=== PATIENT | male | born 2000 | race Caucasian/White ===

== ENCOUNTER 2020-07-14 13:00 | Emergency (ER) | payer OTHER, SELFPAY ==
[2020-07-14 14:35] VITALS: BP 156/110; PULSE 88; RESP 20; TEMP 36.9; O2SAT 97; BMI 35.3
--- NOTE | 2020-07-14 14:38 | HMH.EDUTC ---
[facility] Dis[place] Clinical Impression: URI (upper respiratory infection) Qualifiers: URI type: unspecified URI Qualified Code(s): J06.9 - Acute upper respiratory infection, unspecified Disposition: Home, Self-Care Condition on Discharge: Good Instructions: Sore Throat, DI for Sinusitis, Sinusitis (Alternative Therapy) Additional Instructions: ? Avoid fruit juices, as these do not replace minerals and can actually increase diarrhea. ? Children and adults can use sports drinks to replenish electrolytes. Younger children and infants should use products formulated for children, like oral rehydration solutions. ? Eat food in small amounts and let your stomach recover. ? Get lots of rest. You may feel tired or weak. ? No greasy or fried foods for the next 24-48 hours BRAT diet Bananas Rice Apples and Magnolia ? Make sure to drink plenty of liquids ? Return if needed ? Straight to ER if any life threatening symptoms ? Follow up with family doctor in the next 48-72 hours if no improvement or any worsening of symptoms *Monitor Temp, Over the counter Motrin or Tylenol as directed/as needed Tylenol every 4 hours and Motrin every 6 hours (as long as your family doctor has told you that you can take it) for fever or pain. and straight to ER if unable to lower temp less than 101.0 after medication given *Warm salt water gargles may help to soothe the throat *Throat Lozenges *Warm fluids like tea with honey may help to soothe the throat *Sleep elevated *Humidifier/Vaporizer *Flonase 2 sprays in each nostril daily but be aware that it may take 2-3 days before you notice improvement Your throat swab was sent for culture. Those results are typically sent to your primary care. Be sure to follow up in 2-3 days with your family doctor/primary care physician if no improvement so they can review those result and treat if necessary. If you don?t have a primary care doctor, I recommend you get one but in the mean time, you will have to return to a walk in clinic Follow up IMMEDIATELY for new or worsening symptoms or no Noticeable improvement over the next 48-72 hours. 911 for difficulty breathing or swallowing You were tested for today for COVID19 your test result should be back in the next 24-48 hours, you may call to the [facility] to see if your test results are back in the next 48 hours [phone] [facility] hours are 9am-9pm You was given a handout with instructions for Self Quarantine and Self isolation for while you wait on test results and what to do if they are positive If you are positive the Health Dept will be contacting you also Prescriptions: Fluticasone Propionate [Flonase 50mcg nasal spray 16gm] 1 spr NS DAILY #1 bottle Prescription Printed methylPREDNISolone [Medrol 4mg tab] 4 mg PO DIRECTED #21 tab Prescription Printed Azithromycin [Z-Cayetano 250mg Tab] 250 mg PO DIRECTED #6 tab Prescription Printed Referrals: Mario Alberto Khan MD [Primary Care Provider] - Forms: Work/School Release Time of Disposition: 14:45 Medical Decision Making - Matias Inquiry Pt receiving controlled substance: No Matias was queried for this patient: No Vital Signs: 07/14/20 14:35 Temperature 98.4 F Temperature Source Oral Pulse Rate [Left Brachial] 88 Respiratory Rate 20 Blood Pressure [Left Arm] 156/110 H Blood Pressure Mean [Left Arm] 125 Blood Pressure Source [Left Arm] Automatic Cuff Blood Pressure Position [Left Arm] Sitting 02 Sat by Pulse Oximetry 97 Oxygen Delivery Method Room Air - Lab Data Lab results reviewed: Yes: I reviewed the patient's lab results. Orders (Tests/Meds): ORDERS Category Date Time Status Covid-19 Nasal PCR ([facility]) Routine Lab 07/14/20 14:16 Ordered [facility] HPI - General Stated complaint: cough, sore throat, fever Time Seen by Provider: 07/14/20 14:38 Mode of Arrival: Ambulatory Source of Information: Patient Limitations: No Limitations Description of Symptoms (Recalled from Triage Doc. by RN): NITO
[2020-07-14 14:54] VITALS: BP 156/110; PULSE 88; RESP 20; TEMP 36.9; O2SAT 97
[2020-07-14 20:03] LABS: UTC Strep Screen (Rapid) Negative (Negative)
[2020-07-14 20:04] LABS: UTC Influenza A Antigen Negative (Negative); UTC Influenza B Antigen Negative (Negative)
== END 2020-07-14 15:00 | disposition home or self-care (01) ==
PROVIDERS: Emergency Provider Nurse Practitioner; PCP Internal Medicine Adolescent Medicine
DX: Z20.822 Contact with and (suspected) exposure to COVID-19 (principal); J06.9 Acute upper respiratory infection, unspecified
CPT/HCPCS: 87804; 87880; 99202; G0463; U0003

== ENCOUNTER 2022-02-07 23:46 | Emergency (ER) | payer OTHER, SELFPAY ==
--- NOTE | 2022-02-07 23:45 | ECG_ITS ---
APPROVED REPORT Exam: Resting ECG HR:72 bpm ECG Measurements Heart Rate 72 AXES NH 132 P 45 QRSd 111 QRS 36 QT 352 T 24 QTc 376 Conclusion SINUS RHYTHM WITH SINUS ARRHYTHMIA MODERATE INTRAVENTRICULAR CONDUCTION DELAY [110+ ms QRS DURATION] BORDERLINE ECG UNCONFIRMED REPORT Electronically signed by : Mario Alberto Khan MD 02/11/2022 21:01:03
[2022-02-07 23:51] VITALS: BP 148/86; PULSE 78; RESP 18; TEMP 36.8; O2SAT 98; BMI 35.3
--- NOTE | 2022-02-08 00:12 | XR_ITS ---
PROCEDURE INFORMATION: Exam: XR Chest Exam date and time: 02/08/2022 12:30 AM Age: 21 years old Clinical indication: Chest wall pain; Additional info: Chest pain TECHNIQUE: Imaging protocol: Radiologic exam of the chest. Views: 1 view. COMPARISON: No relevant prior studies available. FINDINGS: Lungs: Unremarkable. No consolidation. Pleural spaces: Unremarkable. No pleural effusion. No pneumothorax. Heart/Mediastinum: Unremarkable. No cardiomegaly. Bones/joints: Unremarkable. IMPRESSION: No acute findings.
--- NOTE | 2022-02-08 00:13 | HMH.EDCP ---
ED Disposition Clinical Impression: Chest pain Qualifiers: Chest pain type: unspecified Qualified Code(s): R07.9 - Chest pain, unspecified Disposition: Home, Self-Care Condition on Discharge: Good Referrals: Mario Alberto Khan MD [Primary Care Provider] - - Critical Care Critical Care Time: No Attestation: On 02/07/22, the high probability of a clinically significant, sudden or life threatening deterioration of the following system(s) required my full and direct attention, intervention and personal management. The time I documented below is in addition to time spent performing reported procedures but includes the following listed in this critical care notation. Medical Decision Making - Medical Records Medical records reviewed: Yes: I reviewed the patient's medical records. - Matias Inquiry Pt receiving controlled substance: No Vital Signs: 02/07/22 23:51 02/08/22 00:30 02/08/22 00:31 Temperature 98.2 F Temperature Source Oral Pulse Rate 82 Pulse Rate [Left Apical] 78 Respiratory Rate 18 Blood Pressure 152/85 H 152/85 H Blood Pressure [Right Arm] 148/86 H Blood Pressure Mean 104 Blood Pressure Mean [Right Arm] 106 Blood Pressure Source [Right Arm] Automatic Cuff Blood Pressure Position [Right Arm] Sitting 02 Sat by Pulse Oximetry 98 98 Oxygen Delivery Method Room Air - Lab Data Lab Results 02/08/22 00:08: WBC 7.0, RBC 5.05, Hgb 15.5, Hct 47.2, MCV 93.5, MCH 30.6, MCHC 32.8, RDW 13.6, Plt Count 279, MPV 8.0, Neut % (Auto) 56.5, Lymph % (Auto) 33.2, [place]quois % (Auto) 6.6, Eos % (Auto) 2.3, Baso % (Auto) 1.4, Neut # (Auto) 4.0, Lymph # (Auto) 2.3, [place]roquois # (Auto) 0.5, Eos # (Auto) 0.2, Baso # (Auto) 0.1 02/08/22 00:08: Sodium 139, Potassium 4.0, Chloride 105, Carbon Dioxide 28, Anion Gap 10.0, BUN 11, Creatinine 0.90, Estimated Creat Clear 229, Estimated GFR 107, Est GFR ( Amer) 129, Glucose 96, Calcium 9.6, Total Bilirubin 1.5 H, AST 38, ALT 77, Alkaline Phosphatase 86, Troponin I < 0.01, Total Protein 7.4, Albumin 4.6, Globulin 2.8, Albumin/Globulin Ratio 1.6, Lipase 81 02/08/22 02:45: Troponin I < 0.01 Result diagrams: 02/08/22 00:08 02/08/22 00:08 Orders (Tests/Meds): ED MEDICATIONS Discontinued Medications Generic Name Dose Route Start Last Admin Trade Name Maggie PRN Reason Stop Dose Admin Belladonna Alkaloids 60 ml 02/08/22 00:12 02/08/22 00:18 Gi Cocktail 60ml Udc PO 02/08/22 00:13 60 ml ONCE ONE Administration Iopamidol 75 ml 02/08/22 01:51 02/08/22 01:54 Iopamidol-370 (76%);100ml Bottle IV 02/08/22 01:52 75 ml ONCE ONE Administration Sodium Chloride 50 ml 02/08/22 01:51 Sodium Chloride 0.9% 50ml Bag IV 02/08/22 01:52 ONCE ONE Sodium Chloride 10 ml 02/08/22 01:54 02/08/22 01:54 Sodium Chloride 0.9% 10ml Syr (Rad Only) IV 02/08/22 01:55 10 ml ONCE ONE Administration ORDERS Category Date Time Status Troponin I Q3H Lab 02/08/22 06:15 Ordered Medical Decision Narrative: In review this is a 21-year-old male who presents with chest pain. Hemodynamically stable and nontoxic-appearing. Initial EKG shows normal sinus rhythm without acute ST abnormalities. No arrhythmias. His symptoms are most likely consistent with reflux but will evaluate for any underlying cardiac changes. His laboratory studies were largely unremarkable outside of a bilirubin of 1.5. With this with this chest pain could potentially be gallbladder pathology so we will get a CT scan to evaluate for any abnormalities. This just showed evidence of mesenteric adenitis. His troponins were flat with no changes. Talked him about symptomatic care for possible reflux and he voiced understanding. At this point stable for discharge. Return precautions given. Chest Pain HPI - General Chief Complaint: Chest Pain Stated Complaint: CP Time Seen by Provider: 02/08/22 00:15 Mode of Arrival: Ambulatory Limitations: No Limitations Description of
[2022-02-08 00:19] LABS: Basophils # 0.1 K/mm3 (0-0.2); Basophils % 1.4 % (0.1-2.0); Eosinophils # 0.2 K/mm3 (0.0-0.4); Eosinophils % 2.3 % (0.1-12.0); Hematocrit 47.2 % (42.0-52.0); Hemoglobin 15.5 g/dL (14.1-18.0); Lymphocytes # 2.3 K/mm3 (0.7-4.5); Lymphocytes % 33.2 % (10-50); Mean Corpuscular HGB Conc 32.8 g/dL (31.8-35.4); Mean Corpuscular Hemoglobin 30.6 pg (27.0-31.2); Mean Corpuscular Volume 93.5 fl (80-94); Monocytes # 0.5 K/mm3 (0.1-1.0); Monocytes % 6.6 % (1.7-9.3); Neutrophils % 56.5 % (37.0-80.0); Platelet Count 279 K/mm3 (142-424); Red Blood Count 5.05 M/mm3 (4.60-6.20); Red Cell Distribution Width 13.6 % (11.5-17.5)
[2022-02-08 00:26] LABS: Alanine Aminotransferase 77 U/L (12-78); Albumin Level 4.6 g/dl (3.5-5.0); Albumin/Globulin Ratio 1.6 (1.1-1.8); Alkaline Phosphatase 86 U/L (38-126); Aspartate Amino Transferase 38 U/L (17-59); Bilirubin,Total 1.5 mg/dl (0.2-1.3); Blood Urea Nitrogen 11 mg/dl (9-20); Calcium 9.6 mg/dl (8.4-10.2); Carbon Dioxide 28 mmol/L (22.0-30.0); Chloride 105 mmol/L (98-107); Creatinine Clearance Estimated 229 mL/min (50-200); Estimated Glomerular Filt Rate 107 ml/min (>60); GFR (African American) 129 ML/MIN (>60); Globulin 2.8 g/dL (1.3-3.2); Glucose 96 mg/dl (74-100); Lipase 81 U/L (23-300); Sodium 139 mmol/L (136-145); Total Protein,Serum 7.4 g/dl (6.3-8.2)
[2022-02-08 00:30] VITALS: BP 152/85; PULSE 82; O2SAT 98
[2022-02-08 00:31] VITALS: BP 152/85
[2022-02-08 00:40] LABS: Troponin I < 0.01 ng/ml (0.00-0.034)
--- NOTE | 2022-02-08 01:31 | CT_ITS ---
PROCEDURE INFORMATION: Exam: CT Abdomen And Pelvis With Contrast Exam date and time: 02/08/2022 1:41 AM Age: 21 years old Clinical indication: Abdominal pain; Epigastric; Additional info: Epigastric pain TECHNIQUE: Imaging protocol: Computed tomography of the abdomen and pelvis with contrast. Radiation optimization: All CT scans at this facility use at least one of these dose optimization techniques: automated exposure control; mA and/or kV adjustment per patient size (includes targeted exams where dose is matched to clinical indication); or iterative reconstruction. Contrast material: ISOVUE; Contrast volume: 75 ml; Contrast route: IV; COMPARISON: CR XR CHEST PORTABLE 02/08/2022 12:30 AM FINDINGS: Lungs: The lung bases are clear. No pleural effusion. Liver: Unremarkable. No mass. Gallbladder and bile ducts: Unremarkable. No calcified stones. No ductal dilation. Pancreas: Unremarkable. Spleen: Unremarkable. Adrenal glands: Unremarkable. Kidneys and ureters: No renal mass or hydronephrosis. Stomach and bowel: Unremarkable. No obstruction. No mucosal thickening. Moderate right colonic stool. Appendix: The appendix is identified and is normal. Intraperitoneal space: No free air. No significant fluid collection. Retroperitoneal space: No bulky lymphadenopathy. Vasculature: Unremarkable. No abdominal aortic aneurysm. Lymph nodes: There is a prominent right lower quadrant lymph node measuring 11 mm short axis in addition to other nonenlarged lymph nodes. Urinary bladder: Unremarkable as visualized. Reproductive: Unremarkable as visualized. Bones/joints: Unremarkable. No acute osseous abnormality. Soft tissues: Unremarkable. IMPRESSION: 1. Prominent right lower quadrant lymph node(s) suggest mesenteric adenitis. 2. Otherwise, no acute findings. Normal appendix. Moderate right colonic stool.
[2022-02-08 03:19] LABS: Troponin I < 0.01 ng/ml (0.00-0.034)
[2022-02-08 03:43] VITALS: BP 150/80; PULSE 81; RESP 18; TEMP 36.8; O2SAT 98
== END 2022-02-08 03:45 | disposition home or self-care (01) ==
PROVIDERS: Emergency Provider Student in an Organized Health Care Education/Training Program; PCP Internal Medicine Adolescent Medicine
DX: R07.2 Precordial pain (principal)
CPT/HCPCS: 71045; 74177; 80053; 83690; 84484; 85025; 93005; 99285; Q9967

== ENCOUNTER 2022-06-10 13:56 | Emergency (ER) | payer OTHER, SELFPAY ==
[2022-06-10 14:56] VITALS: BP 147/79; PULSE 92; RESP 18; TEMP 37.2; O2SAT 98; BMI 37.2
--- NOTE | 2022-06-10 15:32 | EXP.UTC ---
Discharge Plan Disposition Patient Disposition: Home, Self-Care Condition: Good Prescriptions Prescriptions: New etodolac 200 mg capsule 200 mg PO Q8H PRN (Reason: pain) Qty: 20 0RF methylprednisolone [Medrol (Cayetano)] 4 mg tablets,dose pack See Rx Instructions .Route .COMPLEX 6 Days Qty: 21 0RF Rx Instructions: taper pack; cyclobenzaprine 10 mg tablet 10 mg PO TID PRN (Reason: muscle spasm) Qty: 15 0RF Referrals Follow up/Referrals: Provider,Referral, MD [Primary Care Provider] - See instructions Activity Restrictions/Add. Instructions Additional Instructions/Restrictions: *Etodolac yeyo 8 hours with meal as needed for pain/inflammation *Remember you had a Toradol shot in the clinic today, which is similar to Motrin and Etodolac do not start until tomorrow *Not additional anti-inflammatory like Ibuprofen motrin, aleve, advil with the above amount of Etodolac. You can still take Tylenol every 4 hours as needed if you need something else for pain *Ice 20 minutes every 2 hours for the first 48 hours after the initial injury followed by moist heat every 20 minutes 3-4 times a day to affected area *Muscle relaxer every 8 hours as needed for muscle spasms but remember, it WILL cause drowsiness You cannot take it and drive, operate machinery or care for small children. *Keep this area active, no movement leads to more stiffness, However take it easy and avoid heavy lifting pushing or pulling *Follow up with you family doctor if no improvement for further treatment Start oral steriod tomorrow Clinical Impressions Clinical Impression: Low back pain Stand Alone Forms Stand Alone Forms: Work/School Release Instructions Patient Instructions: DI for Low Back Pain, Low Back Pain, DI for Muscle Spasm, Cyclobenzaprine, Etodolac Discharge ED Provider: Kelly Urban [facility] General Stated complaint: No accident, back pain Mode of Arrival: Ambulatory Source of Information: Patient Limitations: No Limitations Time Seen by Provider: 06/10/22 15:32 Description of Symptoms (Recalled from Triage Doc. by RN): LOWER BACK PAIN THAT STARTED ON WEDNESDAY HEENT Symptoms (Recalled from RN notes): No Resp Symptoms (Recalled from RN notes): No Skin Symptoms (Recalled from RN notes): No MS Symptoms (Recalled from RN notes): Yes Functional Status (Recalled from RN notes): WNL History of Present Illness Provider Complaint: Patient states that on Wednesday he was putting on his close and felt sharp pain in lower back States that he has been having pain on and off ever since States that today it was hurting worse so he came in to get it checked out Denies loss of control of bowel or bladder Related Data Previous Rx's Medication Instructions Recorded cyclobenzaprine 10 mg tablet 10 mg PO TID PRN muscle spasm #15 06/10/22 tabs etodolac 200 mg capsule 200 mg PO Q8H PRN pain #20 caps 06/10/22 methylprednisolone 4 mg tablets in See Rx Instructions .Route 06/10/22 a dose pack (Medrol (Cayetano)) .COMPLEX 6 days #21 tabs Allergies Allergy/AdvReac Type Severity Reaction Status Date / Time No Known Allergies Allergy Verified 07/14/20 14:38 Worker's Comp Is this a Worker's Comp case?: No [facility] Disclaimer: The information contained in this section may have been updated after the patient was seen, as this information can be updated by other users. Social History Smoking Status: Never smoker alcohol intake: never current occupational status: other Travel in the last 8 weeks: None ROS Obtained: Yes All systems reviewed & no additional complaints except as documented and Yes Systems reviewed as appropriate & no additional complaints except as documented Constitutional Constitutional: Reports system reviewed and no additional complaints, except as documented, Reports as per HPI, Denies body ache and Denies fever(s) ENT Ears, Nose, Mouth, and Throat: Reports system reviewed and no additional complaints, except as do
--- NOTE | 2022-06-10 15:36 | XR_ITS ---
FINAL REPORT CLINICAL HISTORY: pain in lower back FINDINGS: Three views were obtained. There is no acute fracture. There is no malalignment. The disc spaces are maintained. IMPRESSION: No acute process. Reviewed, Interpreted and Dictated by Thanh Jones III, MD Transcribed by Ken Tello Authenticated and [facility]
[2022-06-10 16:55] VITALS: BP 147/79; PULSE 92; RESP 18; TEMP 37.2; O2SAT 98
== END 2022-06-10 16:57 | disposition home or self-care (01) ==
PROVIDERS: Emergency Provider Nurse Practitioner
DX: M54.50 Low back pain, unspecified (principal)
CPT/HCPCS: 72100; 96372; 99212; G0463